=== PATIENT | female | born 1940 | race Caucasian/White ===

== ENCOUNTER 2016-08-28 07:44 | Day surgery (SDC) | payer MEDICARE ==
[~2016-08-28 07:44] MED LIST: Acetaminophen TAB* 325 MG PO PRN; Buffered Lidocaine 0.9% SYRIN* 5 ML/SYR SYRINGE INTRADERM ONE
[2016-08-28] MEDS ORDERED: Midazolam* 1 MG/ML 2 ML VIAL (2 MG) ONE ×2 (10:18→10:31)
[2016-08-28] MEDS ORDERED: Acetaminophen TAB* 325 MG ONE (11:05)
[2016-08-28 11:09] VITALS: BP 141/74
--- NOTE | 2016-08-28 11:36 | OP ---
DATE OF OPERATION: 08/28/2016 - [facility] DATE OF : 1940. SURGEON: Bertin Walsh M.D. PREOPERATIVE DIAGNOSIS: Cataract right eye. POSTOPERATIVE DIAGNOSIS: Cataract right eye. OPERATIVE PROCEDURE: Phacoemulsification right eye with IOL. DESCRIPTION OF PROCEDURE: The patient was brought to the operating room after being given 1/2% Alcaine with epinephrine drops in the preoperative area. The eye was prepped and draped in the usual sterile fashion. Sterile drape and eyelid speculum were placed. Again, topical 1/2% Alcaine with epinephrine was given. A paracentesis incision was made at the 9 o'clock position with the No.75 blade. Clear cornea incision 2.2 x 2.2-mm was created at the 12 o'clock position starting at the anterior limbus using the 2.2-mm keratome. The anterior chamber was irrigated with 0.4 mL of 1% non-preservative intracameral lidocaine and filled with DisCoVisc. A capsulorrhexis was completed using the cystotome and the Utrata forceps. Hydrodissection was performed with balanced salt solution. The lens nucleus was removed with the Phacoemulsification handpiece without incident. Cortex was removed with the irrigation-aspiration handpiece. The capsular bag was re-inflated using DisCoVisc and an [id number] implant was inserted with the shooter. The irrigation-aspiration handpiece was used to remove all residual DisCoVisc. The eye was refilled with balanced salt solution and the wound checked and found to be watertight. Topical Maxitrol drops were given. [id number]/[facility] #: [id number] [facility]
[2016-08-28] MEDS ORDERED: Flurbiprofen 0.03% OPTH.SOL* 2.5 ML BTL ONE (13:52)
[2016-08-28] MEDS ORDERED: acetaZOLAMIDE TAB* 250 MG ONE (13:52)
[2016-08-28] MEDS ORDERED: Lidocaine 1% MPF wEPI 200,000* 30 ML SDV ONE (13:52)
[2016-08-28] MEDS ORDERED: Cyclopentolate 1% OPTH.SOL* 2 ML BTL ONE (13:52)
[2016-08-28] MEDS ORDERED: Lidocaine 1% MPF* 2 ML VIAL ONE (13:52)
[2016-08-28] MEDS ORDERED: Povidone Iodine 5% OPTH* 30 ML BTL ONE (13:52)
[2016-08-28] MEDS ORDERED: Phenylephrine 2.5% OPTH.SOL* 2 ML BTL ONE (13:52)
[2016-08-28] MEDS ORDERED: Neomycin/Polymy/Dex OPTH.SUSP* MAXITROL 0.1% 5 ML ONE (13:52)
[2016-08-28] MEDS ORDERED: Proparacaine 0.5% OPHTH.SOL* 15 ML BTL ONE (13:55)
[2016-08-28] MEDS ORDERED: Buffered Lidocaine 0.9% SYRIN* 5 ML/SYR SYRINGE ONE (13:55)
== END 2016-08-28 11:16 | disposition home or self-care (01) ==
LOC: OREAST 07:44
PROVIDERS: ATTEND Specialist
DX: H25.13 Age-related nuclear cataract, bilateral (principal); H40.033 Anatomical narrow angle, bilateral; F41.9 Anxiety disorder, unspecified; Z88.1 Allergy status to other antibiotic agents
CPT/HCPCS: A9270-GY; J2001; J2250; V2632

== ENCOUNTER 2016-09-04 08:13 | Day surgery (SDC) | payer MEDICARE ==
[~2016-09-04 08:13] MED LIST changes: +Buffered Lidocaine 0.9% SYRIN* 5 ML/SYR SYRINGE ONE; +Cyclopentolate 1% OPTH.SOL* 2 ML BTL ONE; +Flurbiprofen 0.03% OPTH.SOL* 2.5 ML BTL ONE; +Lidocaine 1% MPF wEPI 200,000* 30 ML SDV ONE; +Lidocaine 1% MPF* 2 ML VIAL ONE; +Neomycin/Polymy/Dex OPTH.SUSP* MAXITROL 0.1% 5 ML ONE; +Phenylephrine 2.5% OPTH.SOL* 2 ML BTL ONE; +Povidone Iodine 5% OPTH* 30 ML BTL ONE; +Proparacaine 0.5% OPHTH.SOL* 15 ML BTL ONE; +acetaZOLAMIDE TAB* 250 MG ONE
[2016-09-04] MEDS ORDERED: Midazolam* 1 MG/ML 2 ML VIAL (2 MG) ONE ×2 (10:21→10:48)
[2016-09-04 11:27] VITALS: BP 115/62
--- NOTE | 2016-09-04 12:11 | OP ---
DATE OF OPERATION: 09/04/2016 - [facility] DATE OF : 1940. SURGEON: Bertin Walsh M.D. PREOPERATIVE DIAGNOSIS: Cataract left eye. POSTOPERATIVE DIAGNOSIS: Cataract left eye. OPERATIVE PROCEDURE: Phacoemulsification left eye with IOL. DESCRIPTION OF PROCEDURE: The patient was brought to the operating room after being given 1/2% Alcaine with epinephrine drops in the preoperative area. The eye was prepped and draped in the usual sterile fashion. Sterile drape and eyelid speculum were placed. Again, topical 1/2% Alcaine with epinephrine was given. A paracentesis incision was made at the 3 o'clock position with the No.75 blade. Clear cornea incision 2.2 x 2.2-mm was created at the 6 o'clock position starting at the anterior limbus using the 2.2-mm keratome. The anterior chamber was irrigated with 0.4 mL of 1% non-preservative intracameral lidocaine and filled with DisCoVisc. A capsulorrhexis was completed using the cystotome and the Utrata forceps. Hydrodissection was performed with balanced salt solution. The lens nucleus was removed with the Phacoemulsification handpiece without incident. Cortex was removed with the irrigation-aspiration handpiece. The capsular bag was re-inflated using DisCoVisc and an [id number] 23.5 implant was inserted with the shooter. The irrigation-aspiration handpiece was used to remove all residual DisCoVisc. The eye was refilled with balanced salt solution and the wound checked and found to be watertight. Topical Maxitrol drops were given. [id number]/[facility] #: [id number] [facility]ERYDeep[facility]
== END 2016-09-04 11:38 | disposition home or self-care (01) ==
LOC: OREAST 08:13
PROVIDERS: ATTEND Specialist
DX: H25.12 Age-related nuclear cataract, left eye (principal); H40.033 Anatomical narrow angle, bilateral; K21.9 Gastro-esophageal reflux disease without esophagitis; Z88.1 Allergy status to other antibiotic agents; Z96.1 Presence of intraocular lens
CPT/HCPCS: A9270-GY; J2001; J2250; V2632

== ENCOUNTER 2019-05-09 11:26 | Emergency (ER) | payer MEDICARE ==
[2019-05-09 12:32] VITALS: BP 119/66
--- NOTE | 2019-05-09 12:40 | UC ---
Throat Pain/Nasal [place] HPI - HPI Summary HPI Summary: 79-year-old female who has had a sore throat over the past 2 days. She denies any fever or chills. She states she has a productive cough of yellow sputum. She is a nonsmoker. - History of Current Complaint Chief Complaint: UCGeneralIllness Stated Complaint: COUGH SORE THROAT CONGESTION Time Seen by Provider: 05/09/19 12:25 Hx Obtained From: Patient ?: No Onset/Duration: Gradual Onset Severity: Mild Pain Intensity: 8 Cough: Productive Associated Signs & Symptoms: Positive: Negative - Allergies/Home Medications Allergies/Adverse Reactions: Allergies Allergy/AdvReac Type Severity Reaction Status Date / Time aspirin Allergy Stomach Verified 05/09/19 12:29 Cramps erythromycin base Allergy Stomach Verified 05/09/19 12:29 Cramps Tetracyclines Allergy Hives Verified 05/09/19 12:29 shrimp Allergy Severe Hives Uncoded 08/28/16 08:36 Home Medications: Home Medications Calcium Carbonate/Vitamin D3 [Calcium + D3 600-200 mg-Unit] 1 tab PO BID [History Confirmed 05/09/19] Cyanocobalamin TAB* [Vitamin B12 TAB*] 1,000 mcg PO DAILY 08/22/16 [History Confirmed 05/09/19] Multiple Vitamins W/ Minerals [Multivitamin Adults] 1 tab PO BID 08/22/16 [ History Confirmed 05/09/19] Omeprazole 40 mg PO DAILY 08/22/16 [History Confirmed 05/09/19] diphenhydrAMINE HCl [Benadryl Allergy 25 MG CAP] 25 mg PO Q6HR 08/22/16 [ History Confirmed 05/09/19] Acetaminophen [Tylenol Extra Strength] 1,000 mg PO ONCE 05/09/19 [History Confirmed 05/09/19] Amoxicillin/Clavulanate TAB* [Augmentin TAB 875*] 875 mg PO BID 10 Days #20 tab 05/09/19 [Rx] PMH/Surg Hx/FS Hx/Imm Hx Previously Healthy: Yes - Surgical History Surgical History: Yes Surgery Procedure, Year, and Place: carpal tunnel left, 2006. bunion reoved left 1998. breast implants bilat 1999. cataract - Family History Known Family History: Positive: Unknown - Social History Occupation: Retired Alcohol Use: None Substance Use Type: None Smoking Status (MU): Never Smoked Tobacco Review of Systems All Other Systems Reviewed And Are Negative: Yes ENT: Positive: Sore Throat Respiratory: Positive: Cough - Productive cough of yellow sputum. Is Patient Immunocompromised?: No Physical Exam Triage Information Reviewed: Yes Appearance: Well-Appearing, No Pain Distress, Well-Nourished Vital Signs: Initial Vital Signs Temp 97.9 F 05/09/19 12:25 Pulse 81 05/09/19 12:25 Resp 17 05/09/19 12:25 BP 119/66 05/09/19 12:25 Pulse Ox 99 05/09/19 12:25 Vital Signs Reviewed: Yes Eyes: Positive: Conjunctiva Clear ENT: Positive: Pharyngeal erythema - Very minimal pharyngeal erythema, TMs normal, Uvula midline Neck: Positive: Supple, Nontender, No Lymphadenopathy Respiratory: Positive: No respiratory distress, No accessory muscle use, Rhonchi - Scattered rhonchi and very minimal wheezing with forced expiration., Wheezing Cardiovascular: Positive: RRR, No Murmur, Pulses Normal, Brisk Capillary Refill Musculoskeletal Exam: Normal Neurological Exam: Normal Psychological Exam: Normal Skin Exam: Normal Throat Pain/Nasal Course/Dx - Course Course Of Treatment: Chest x-ray:FINDINGS: The lungs are clear. There is no pleural effusion. The cardiomediastinal silhouette is within normal limits. The upper abdominal contents are normal. The bones are osteopenic. IMPRESSION: No acute cardiopulmonary process by radiograph. The patient is comfortable here and in no distress. I am going to treat her with an antibiotic for sinusitis which will also cover her lungs since she has scattered rhonchi and a productive cough. - Differential Dx/Diagnosis Provider Diagnosis: Sinusitis, Bronchitis Discharge ED - Sign-Out/Discharge Documenting (check all that apply): Patient Departure All imaging exams completed and their final reports reviewed: Yes - Discharge Plan Condition: Good Disposition: HOME Prescriptions: Amoxicillin/Clavulanate TAB* [Augmentin TAB 875*] 875 mg PO BID 10 Days #20 tab Patient Education Materials: Sinusitis (ED) Referrals: John Jimenez DO [Primary Care Provider] - Additional Instructions: Increase fluids, take the Augmentin with food, follow-up with your primary care provider in 4-5 days if no improvement. - Billing Disposition and Condition Condition: GOOD Disposition: Home
== END 2019-05-09 13:29 | disposition home or self-care (01) ==
LOC: UCCORT 11:26
DX: J32.9 Chronic sinusitis, unspecified (principal); J40 Bronchitis, not specified as acute or chronic; Z88.6 Allergy status to analgesic agent; Z88.1 Allergy status to other antibiotic agents; Z91.013 Allergy to seafood
CPT/HCPCS: 71046; 99212; G0463